=== PATIENT | female | born 1935 | race Caucasian/White ===

== ENCOUNTER 2018-07-18 09:09 | Inpatient (IN) | payer MEDICARE, MEDICAID ==
[~2018-07-18] VITALS: Ht 152.4 cm; Wt 59.4 kg
[2018-07-18] VITALS (10 sets, daily range): BP systolic 109–151; BP diastolic 36–75
[2018-07-18 09:45] LABS: EOSINOPHILS # (AUTO) 0.1 K/uL (0.0-0.7); LYMPHOCYTES # (AUTO) 1.1 K/uL (20.0-40.0); MONOCYTES # (AUTO) 0.6 K/uL (2.0-10.0)
[2018-07-18 09:56] LABS: CARBON DIOXIDE 25 mmol/L (21-32); CHLORIDE 102 mmol/L (98-107); CREATININE 0.8 mg/dL (0.6-1.3); GLUCOSE 176 mg/dL (74-106); POTASSIUM 4.4 mmol/L (3.5-5.1); UREA NITROGEN, BLOOD 13 mg/dL (7-18)
[2018-07-18 10:02] LABS: ALANINE AMINOTRANSFERASE 15 U/L (14-59); ALKALINE PHOSPHATASE 123 U/L (50-136); ASPARTATE AMINOTRANSFERASE 8 U/L (15-37); BILIRUBIN,DIRECT 0.1 mg/dL (0.0-0.2); BILIRUBIN,TOTAL 0.3 mg/dL (0.2-1.0); LIPASE 181 U/L (73-393); TOTAL PROTEIN, SERUM 7.5 g/dL (6.4-8.2)
[2018-07-18 10:07] LABS: BASOPHILS % (AUTO) 0.7 % (0.0-2.0); EOSINOPHILS % (AUTO) 1.4 % (0.0-7.0); LYMPHOCYTES % (AUTO) 18.3 % (20.5-51.5); MEAN CORPUSCULAR HEMOGLOBIN 18.7 uug (24.7-32.8); MEAN CORPUSCULAR HGB CONC 30 g/dL (32.3-35.6); MEAN CORPUSCULAR VOLUME 62.8 fL (75.5-95.3); MONOCYTES % (AUTO) 9.7 % (0.0-11.0); NEUTROPHILS # (AUTO) 4.3 K/uL (1.8-8.9); NEUTROPHILS % (AUTO) 69.9 % (38.5-71.5); PLATELET COUNT (AUTO) 352 K/uL (179-408); RED BLOOD CELL COUNT(AUTO) 3.63 MIL/uL (3.63-4.92); WHITE BLOOD COUNT (AUTO) 6.2 K/uL (3.8-11.8)
[2018-07-18] MEDS ORDERED: METF-442 PO (10:09)
[2018-07-18] MEDS ORDERED: ACET-2154 PO (10:09)
[2018-07-18] MEDS ORDERED: FERR325T28 PO (10:09)
[2018-07-18] MEDS ORDERED: DOCU100C36 PO (10:09)
[2018-07-18] MEDS ORDERED: GLIP5TAB13 PO (10:09)
[2018-07-18] MEDS ORDERED: LISI-607 PO (10:09)
[2018-07-18] MEDS ORDERED: MAGN400O6 PO (10:09)
[2018-07-18] MEDS ORDERED: ATOR10TA PO (10:09)
[2018-07-18] MEDS ORDERED: MEMA10TA PO (10:09)
[2018-07-18 10:10] LABS: HEMOGLOBIN 6.8 g/dL (10.9-14.3)
[2018-07-18 10:11] LABS: HEMATOCRIT 22.8 % (31.2-41.9)
[2018-07-18 10:15] LABS: IRON, SERUM 129 ug/dL (50-175)
[2018-07-18] MEDS ORDERED: PRIM50TA PO (10:32)
[2018-07-18] MEDS ORDERED: ASCO500C18 PO (10:32)
[2018-07-18] MEDS ORDERED: AMLO5TAB4 PO (10:32)
[2018-07-18] MEDS ORDERED: SENN-167 PO (10:32)
[2018-07-18] MEDS ORDERED: LEVO25TA2 PO (10:32)
[2018-07-18] MEDS ORDERED: FAMO20TA41 PO (10:32)
[2018-07-18] MEDS ORDERED: INSU100V28 SQ (10:32)
[2018-07-18 10:37] LABS: BASOPHILS % (MANUAL) 1 % (0-2); EOSINOPHILS % (MANUAL) 3 % (0-8); LYMPHOCYTES % (MANUAL) 15 % (20-40); METAMYELOCYTES % 1 % (0-1); MONOCYTES % (MANUAL) 6 % (2-10); MYELOCYTES % 2 % (0-0); NEUTROPHILS % (MANUAL) 72 % (42-75)
--- NOTE | 2018-07-18 11:37 | NUR ---
pt transfered to floor in stable condition
--- NOTE | 2018-07-18 11:40 | NUR ---
Admitted from ER per glory accompanied by nurse for anemia. Patient alert x2. Able to make needs known, with periods of confusion. Not in any form of distress. Denies any pain. Oriented patient to unit and equipment. Routine admission care done.
--- NOTE | 2018-07-18 14:21 | NUR ---
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 PT PRESENTS WITH SACRAL SCAR, PRESENT ON ADMISSION. 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 ALL SKIN PROTECTION RECOMMENDATIONS DISCUSSED WITH NURSING STAFF. WILL SEE PRN. GUILLEN IN AGREEMENT WITH PLAN OF CARE. Addendum: 07/18/18 at 1423 by MAYRA GREEN RN Amended: Links added. Addendum: 07/18/18 at 1423 by MAYRA GREEN RN CURRENT VICTOR M SCORE IS 14.
--- NOTE | 2018-07-18 15:00 | NUR ---
Paged Dr selma Del Rio for orders, awaiting for call back.
[2018-07-18] MEDS ORDERED: SENNOSIDES 1 TABLET PO PRN (17:00)
[2018-07-18] MEDS ORDERED: Medication Not On Formulary EA (Metformin Hcl 1,000 MG) PO SCH (17:00)
[2018-07-18] MEDS ORDERED: HYDROCODONE/APAP 5-325MG TABLET PO PRN (17:15)
[2018-07-18] MEDS ORDERED: ZOLPIDEM 5 MG TABLET PO PRN (17:15)
[2018-07-18] MEDS ORDERED: ONDANSETRON 4 MG/2 ML VIAL IV PRN (17:15)
[2018-07-18] MEDS ORDERED: ACETAMINOPHEN 325 MG TABLET PO PRN (17:15)
[2018-07-18] MEDS ORDERED: Z GUARD REMEDY PASTE 57 GM TUBE TOP PRN (17:15)
[2018-07-18] MEDS ORDERED: MAGNESIUM HYDROXIDE 30 ML LIQUID UDC PO PRN (17:15)
[2018-07-18] MEDS: DOCUSATE SODIUM 100 MG CAPSULE PO SCH (17:49)
[2018-07-18] MEDS: METFORMIN HCL 500 MG TABLET PO SCH (17:49)
[2018-07-18] MEDS ORDERED: ACETAMINOPHEN 325 MG TABLET PO SCH (18:00)
--- NOTE | 2018-07-18 19:00 | NUR ---
Consent for blood transfusion signed by daughter. Blood transfusion started, not in any form of distress with O positive LRBC unit # [id number]. Vital signs WNL. No active bleeding noted.
[2018-07-18] MEDS: MEMANTINE HCL 10 MG TABLET PO SCH (20:24)
[2018-07-18] MEDS: ATORVASTATIN 10 MG TABLET PO SCH (20:24)
[2018-07-18] MEDS: PRIMIDONE 50 MG TABLET PO SCH (20:24)
[2018-07-18] MEDS ORDERED: MAGNESIUM HYDROXIDE 30 ML LIQUID UDC PO SCH (21:00)
[2018-07-19 03:16] VITALS: BP 126/39
--- NOTE | 2018-07-19 05:26 | NUR ---
nsg: pt received 1 unit prbc with H/H of 6.8/22.8. all needs attended. cont to monitor.
[2018-07-19] MEDS: LEVOTHYROXINE SODIUM 25 MCG TABLET PO SCH (06:12)
--- NOTE | 2018-07-19 06:59 | NUR ---
nsg: pt pulled out heplock. attempted to insert twice, unsuccessful. will endorse to am nurse for help.
[2018-07-19 07:10] LABS: BASOPHILS % (AUTO) 0.5 % (0.0-2.0); EOSINOPHILS # (AUTO) 0.1 K/uL (0.0-0.7); EOSINOPHILS % (AUTO) 0.7 % (0.0-7.0); HEMATOCRIT 25.8 % (31.2-41.9); HEMOGLOBIN 8.1 g/dL (10.9-14.3); LYMPHOCYTES # (AUTO) 1.3 K/uL (20.0-40.0); MEAN CORPUSCULAR HEMOGLOBIN 20.9 uug (24.7-32.8); MEAN CORPUSCULAR HGB CONC 31 g/dL (32.3-35.6); MEAN CORPUSCULAR VOLUME 66.8 fL (75.5-95.3); MONOCYTES # (AUTO) 0.8 K/uL (2.0-10.0); MONOCYTES % (AUTO) 7.7 % (0.0-11.0); NEUTROPHILS # (AUTO) 7.7 K/uL (1.8-8.9); NEUTROPHILS % (AUTO) 78.1 % (38.5-71.5); PLATELET COUNT (AUTO) 361 K/uL (179-408); RED BLOOD CELL COUNT(AUTO) 3.87 MIL/uL (3.63-4.92); WHITE BLOOD COUNT (AUTO) 9.8 K/uL (3.8-11.8)
[2018-07-19 07:27] LABS: ALANINE AMINOTRANSFERASE 15 U/L (14-59); ALKALINE PHOSPHATASE 122 U/L (50-136); ASPARTATE AMINOTRANSFERASE 12 U/L (15-37); BILIRUBIN,TOTAL 0.8 mg/dL (0.2-1.0); CARBON DIOXIDE 28 mmol/L (21-32); CHLORIDE 103 mmol/L (98-107); CHOLESTEROL 113 mg/dL (<200); CREATININE 0.8 mg/dL (0.6-1.3); GLUCOSE 141 mg/dL (74-106); HDL CHOLESTEROL 38 mg/dL (40-60); MAGNESIUM 1.9 mg/dL (1.8-2.4); PHOSPHOROUS 2.5 mg/dL (2.5-4.9); POTASSIUM 4.3 mmol/L (3.5-5.1); TOTAL PROTEIN, SERUM 7.3 g/dL (6.4-8.2); TRIGLYCERIDES 136 MG/DL (30-150); UREA NITROGEN, BLOOD 11 mg/dL (7-18)
--- NOTE | 2018-07-19 08:20 | NUR ---
AWAKE ALERT BUT CONFUSED X3 NO SS OF DISTRESS. WILL FOLLOW-UP LABS ORDERED SR ON MONITOR
[2018-07-19] MEDS: DOCUSATE SODIUM 100 MG CAPSULE PO SCH ×2 (08:31→17:03)
[2018-07-19] MEDS: ASCORBIC ACID 500 MG TABLET PO SCH (08:31)
[2018-07-19] MEDS: FAMOTIDINE 20 MG TABLET PO SCH (08:31)
[2018-07-19] MEDS: FERROUS SULFATE 325 MG TABEC PO SCH (08:32)
[2018-07-19] MEDS: MEMANTINE HCL 10 MG TABLET PO SCH ×2 (08:32→20:17)
[2018-07-19] MEDS: METFORMIN HCL 500 MG TABLET PO SCH ×2 (08:32→17:03)
[2018-07-19] MEDS: AMLODIPINE 5 MG TABLET PO SCH (08:35)
[2018-07-19] MEDS: LISINOPRIL 5 MG TABLET PO SCH (08:35)
[2018-07-19] MEDS: glipiZIDE 5 MG TABLET PO SCH ×2 (08:38→17:04)
[2018-07-19] MEDS ORDERED: Medication Not On Formulary EA (Ascorbic Acid (Vitamin C) 500 MG) PO SCH (09:00)
[2018-07-19 09:20] LABS: LYMPHOCYTES % (MANUAL) 13 % (20-40); MONOCYTES % (MANUAL) 7 % (2-10)
[2018-07-19 09:22] LABS: NEUTROPHILS % (MANUAL) 80 % (42-75)
[2018-07-19 11:32] VITALS: BP 124/59
--- NOTE | 2018-07-19 12:00 | NUR ---
SEEN BY MD SEE NOTES CONTINUE WITH TELE MONITORING
[2018-07-19] MEDS: CYANOCOBALAMIN 1000 MCG/ML VIAL IM SCH (12:04)
[2018-07-19 15:58] VITALS: BP 119/45
--- NOTE | 2018-07-19 16:09 | NUR ---
NO ACUTE CHANGE B12 GIVEN FOR LOW VIT B12.
[2018-07-19] MEDS: IV NS 1000 ML 1,000 ML IV PRN (17:25)
--- NOTE | 2018-07-19 19:47 | NUR ---
PATIENT IS AWAKE, AAOX2 WITH CONFUSION. DENIES PAIN OR ANY DISCOMFORT ON ASSESSMENT. SAFETY MEASURES IN PLACE WILL CONTINUE TOO MONITOR PATIENT
[2018-07-19 20:00] VITALS: BP 122/45
[2018-07-19] MEDS: PRIMIDONE 50 MG TABLET PO SCH (20:17)
[2018-07-19] MEDS: ATORVASTATIN 10 MG TABLET PO SCH (20:17)
[2018-07-20] VITALS (9 sets, daily range): BP systolic 106–133; BP diastolic 44–66
--- NOTE | 2018-07-20 06:17 | NUR ---
PATIENT SLEPT WELL ON THIS SHIFT, NO SIGNS OF BLEEDING . NO S/S OF PAIN OR ACUTE DISTRESS ON THIS SHIFT, SAFETY MEASURES MAINTAINED AT ALL TIMES.
[2018-07-20 06:20] LABS: BASOPHILS % (AUTO) 0.4 % (0.0-2.0); LYMPHOCYTES # (AUTO) 1.1 K/uL (20.0-40.0); WHITE BLOOD COUNT (AUTO) 6.3 K/uL (3.8-11.8)
[2018-07-20] MEDS: glipiZIDE 5 MG TABLET PO SCH ×2 (06:20→17:04)
[2018-07-20] MEDS: LEVOTHYROXINE SODIUM 25 MCG TABLET PO SCH (06:20)
[2018-07-20 06:22] LABS: EOSINOPHILS # (AUTO) 0.1 K/uL (0.0-0.7); EOSINOPHILS % (AUTO) 0.9 % (0.0-7.0); HEMATOCRIT 22.2 % (31.2-41.9); LYMPHOCYTES % (AUTO) 18.2 % (20.5-51.5); MEAN CORPUSCULAR HEMOGLOBIN 21.3 uug (24.7-32.8); MEAN CORPUSCULAR HGB CONC 32 g/dL (32.3-35.6); MEAN CORPUSCULAR VOLUME 66.1 fL (75.5-95.3); MONOCYTES # (AUTO) 0.7 K/uL (2.0-10.0); MONOCYTES % (AUTO) 10.6 % (0.0-11.0); NEUTROPHILS # (AUTO) 4.4 K/uL (1.8-8.9); NEUTROPHILS % (AUTO) 69.9 % (38.5-71.5); PLATELET COUNT (AUTO) 340 K/uL (179-408); RED BLOOD CELL COUNT(AUTO) 3.36 MIL/uL (3.63-4.92)
[2018-07-20 06:38] LABS: HEMOGLOBIN 7.1 g/dL (10.9-14.3)
[2018-07-20 06:45] LABS: CARBON DIOXIDE 23 mmol/L (21-32); CHLORIDE 106 mmol/L (98-107); CREATININE 0.7 mg/dL (0.6-1.3); GLUCOSE 104 mg/dL (74-106); UREA NITROGEN, BLOOD 10 mg/dL (7-18)
--- NOTE | 2018-07-20 07:30 | NUR ---
AWAKE ALERT BUT CONFUSED X3 NO SS OF PAIN OR DISTRESS. SR ON MONITOR.
[2018-07-20] MEDS: FERROUS SULFATE 325 MG TABEC PO SCH (08:57)
[2018-07-20] MEDS: MEMANTINE HCL 10 MG TABLET PO SCH ×2 (08:57→20:02)
[2018-07-20] MEDS: DOCUSATE SODIUM 100 MG CAPSULE PO SCH ×2 (08:57→17:04)
[2018-07-20] MEDS: METFORMIN HCL 500 MG TABLET PO SCH ×2 (08:57→17:04)
[2018-07-20] MEDS: ASCORBIC ACID 500 MG TABLET PO SCH (08:57)
[2018-07-20] MEDS: CYANOCOBALAMIN 1000 MCG/ML VIAL IM SCH (08:58)
[2018-07-20] MEDS: FAMOTIDINE 20 MG TABLET PO SCH (08:58)
[2018-07-20] MEDS: AMLODIPINE 5 MG TABLET PO SCH (09:02)
[2018-07-20] MEDS: LISINOPRIL 5 MG TABLET PO SCH (09:03)
[2018-07-20] MEDS: IV NS 1000 ML 1,000 ML IV PRN (09:04)
--- NOTE | 2018-07-20 10:00 | NUR ---
SEEN BY KARINE FELIZ SEE NOTES
--- NOTE | 2018-07-20 12:00 | NUR ---
SEEN BY JODIE MERRILL NOTED LOW HGB WITH ORDERS. FOR POSSIBLE EGD AND COLONOSCOPY AWAITING SCHEDULE
[2018-07-20 12:28] LABS: LACTATE DEHYDROGENASE 217 U/L (81-234)
[2018-07-20 13:01] LABS: IRON, SERUM 11 ug/dL (50-175)
[2018-07-20 13:16] LABS: FERRITIN 14 ng/mL (8-252)
--- NOTE | 2018-07-20 17:25 | NUR ---
WILL TRANSFUSE 1 UNIT PRBC AWAITNG CROSSMATCH
--- NOTE | 2018-07-20 19:32 | NUR ---
PATIENT IS AWAKE AAOX2 WITH CONFUSION. DENIES PAIN OR ACUTE DISTRESS ON ASSESSMENT. SAFETY MEASURES IN PLACE, WILL CONTINUE TO MONITOR PATIENT
[2018-07-20] MEDS: PRIMIDONE 50 MG TABLET PO SCH (20:02)
[2018-07-20] MEDS: ATORVASTATIN 10 MG TABLET PO SCH (20:02)
--- NOTE | 2018-07-20 21:36 | NUR ---
BLOOD TRANSFUSION STARTED PER MD ORDERS, PATIENT WITH NO DISTRESS, NO S/S OF TRANSFUSION REACTION. V/S WNL WILL CONTINUE TO MONITOR PATIENT
--- NOTE | 2018-07-20 22:30 | NUR ---
PATIENT TOLERATING TRANSFUSION WELL, NO S/S OF DISTRESS. WILL CONTINUE TO MONITOR PATIENT
[2018-07-21] VITALS: BP 104/57
[2018-07-21 00:01] VITALS: BP 108/57
--- NOTE | 2018-07-21 00:02 | NUR ---
END BLOOD TRANSFUSION, PATIENT TOLERATED TRANSFUSION WELL. V/S WNL, NO REACTION OR DISTRESS DURING TRANSFUSION.
[2018-07-21 03:16] LABS: *OCCULT BLOOD STOOL POSITIVE (NEGATIVE)
[2018-07-21 05:00] VITALS: BP 116/57
--- NOTE | 2018-07-21 06:21 | NUR ---
PATIENT SLEPT WELL ON THIS SHIFT. NO SIGNS OF BLEEDING NOTED. PATIENT CONFUSED AND COMBATIVE WITH CARE REFUSED ALL HER A.M MEDS, NO FURTHER CHANGES AT THIS TIME
[2018-07-21] MEDS: LEVOTHYROXINE SODIUM 25 MCG TABLET PO SCH (06:29)
[2018-07-21 07:09] LABS: BASOPHILS % (AUTO) 0.6 % (0.0-2.0); EOSINOPHILS # (AUTO) 0.1 K/uL (0.0-0.7); EOSINOPHILS % (AUTO) 1.2 % (0.0-7.0); HEMATOCRIT 28.9 % (31.2-41.9); HEMOGLOBIN 9.2 g/dL (10.9-14.3); LYMPHOCYTES # (AUTO) 1.2 K/uL (20.0-40.0); LYMPHOCYTES % (AUTO) 17.2 % (20.5-51.5); MEAN CORPUSCULAR HEMOGLOBIN 22.3 uug (24.7-32.8); MEAN CORPUSCULAR HGB CONC 32 g/dL (32.3-35.6); MEAN CORPUSCULAR VOLUME 70.5 fL (75.5-95.3); MONOCYTES # (AUTO) 0.6 K/uL (2.0-10.0); MONOCYTES % (AUTO) 8.9 % (0.0-11.0); NEUTROPHILS # (AUTO) 5.1 K/uL (1.8-8.9); NEUTROPHILS % (AUTO) 72.1 % (38.5-71.5); PLATELET COUNT (AUTO) 354 K/uL (179-408)
[2018-07-21 07:27] LABS: CARBON DIOXIDE 26 mmol/L (21-32); CHLORIDE 106 mmol/L (98-107); CREATININE 0.7 mg/dL (0.6-1.3); GLUCOSE 125 mg/dL (74-106); MAGNESIUM 1.7 mg/dL (1.8-2.4); POTASSIUM 4.1 mmol/L (3.5-5.1); UREA NITROGEN, BLOOD 6 mg/dL (7-18)
[2018-07-21] MEDS: glipiZIDE 5 MG TABLET PO SCH ×2 (07:30→17:31)
--- NOTE | 2018-07-21 07:45 | NUR ---
Received patient asleep in bed, not in any form of distress. Noted with IV access to saline lock on left fore arm, intact. Noted for possible EGD and colonoscopy,noted consent on chart. Awaiting final orders from Dr. Disla of GI. Bed in low position, side rails up, call light within reach. Ensured safety and comfort. Will continue to monitor.
[2018-07-21] MEDS: METFORMIN HCL 500 MG TABLET PO SCH ×2 (08:00→17:31)
[2018-07-21] MEDS: LISINOPRIL 5 MG TABLET PO SCH (08:29)
[2018-07-21] MEDS: MEMANTINE HCL 10 MG TABLET PO SCH ×2 (08:29→20:50)
[2018-07-21] MEDS: ASCORBIC ACID 500 MG TABLET PO SCH (08:29)
[2018-07-21] MEDS: CYANOCOBALAMIN 1000 MCG/ML VIAL IM SCH (08:30)
[2018-07-21] MEDS: DOCUSATE SODIUM 100 MG CAPSULE PO SCH ×2 (08:30→17:31)
[2018-07-21] MEDS: FAMOTIDINE 20 MG TABLET PO SCH (08:30)
[2018-07-21] MEDS: AMLODIPINE 5 MG TABLET PO SCH (08:30)
[2018-07-21] MEDS: FERROUS SULFATE 325 MG TABEC PO SCH (08:34)
--- NOTE | 2018-07-21 09:00 | NUR ---
Noted patient seen by Dr. Disla who ordered to proceed with EGD with colonoscopy for tomorrow morning. Colon prep ordered. Patient's daughter, Aurelia also updated of the mentioned procedure.
[2018-07-21 11:50] VITALS: BP 128/46
[2018-07-21] MEDS ORDERED: NEUTRA PHOS PACKET PO ONE (12:15)
[2018-07-21] MEDS: MAGNESIUM SULFATE/D5W 100 ML IV SCH ×2 (12:52→13:54)
[2018-07-21 15:50] VITALS: BP 118/46
[2018-07-21] MEDS: IV NS 1000 ML 1,000 ML IV PRN (19:00)
--- NOTE | 2018-07-21 19:30 | NUR ---
Patient awake in bed, not in any form of distress. Noted with IV access to normal saline at 75cc/hr. Noted for EGD and colonoscopy tomorrow,noted consent on chart. Maintained on clear liquids and to be npo post midnight. Patient informed that bowel prep will be started tonight. Bed in low position, side rails up, call light within reach. Ensured safety and comfort.
[2018-07-21 20:00] VITALS: BP 136/40
[2018-07-21] MEDS ORDERED: GOLYTELY 4000 ML BOTTLE PO ONE (20:00)
--- NOTE | 2018-07-21 20:00 | NUR ---
RECEIVED PATIENT AWAKE IN BED. A/O X2. FORGETFUL AT TIMES BUT FOLLOWS DIRECTIONS WELL. PATIENT EDUCATED AND AWARE THAT SHE NEEDS TO START GOLYTELY PREP FOR COLONOSCOPY IN AM. PATIENT STARTED ON GOLYTELY ORDERED PER GI MD. VS WNL. IVF INFUSING WELL TO LEFT FA #20 GAUGE. PATIENT DENIES PAIN OR DISCOMFORT. NO RESP. DISTRESS NOTED. CALL LIGHT IN REACH. BED ALARM ON. ALL NEEDS ATTENDED.
[2018-07-21] MEDS: PRIMIDONE 50 MG TABLET PO SCH (20:50)
[2018-07-21] MEDS: ATORVASTATIN 10 MG TABLET PO SCH (20:50)
--- NOTE | 2018-07-21 23:00 | NUR ---
PATIENT AWAKE IN BED. REFUSING TO FINISH GOLYTELY PATIENT HAS INTAKE ABOUT 1500cc. NOTIFIED RETAIL ASSOCIATE THAT PATIENT IS REFUSING AND STATING SHE IS UNABLE TO FINISH PREP. PATIENT HAS HAD ONE LOOSE BM, NOTED DARK BLACK COLOR. WILL CONTINUE TO MONITOR.
--- NOTE | 2018-07-21 23:20 | NUR ---
CALLED OUT TO DR. MAR TO INFORM HIM THAT PATIENT IS UNABLE TO FINISH AND REFUSING GOLYTELY PREP. MD AWARE. NO NEW ORDERS GIVEN AT THIS TIME. ENVIRONMENTAL PLANNER NOTIFIED.
[2018-07-22] VITALS: BP 110/45
--- NOTE | 2018-07-22 00:30 | NUR ---
PATIENT NPO ORDERED.
[2018-07-22 04:00] VITALS: BP 114/45
--- NOTE | 2018-07-22 05:54 | NUR ---
PATIENT AWAKE IN BED. SLEPT WELL THROUGHOUT THE NIGHT. VSS. ON TELE SR. IVF INFUSING WELL. DENIES PAIN OR DISCOMFORT. CALL LIGHT IN REACH. BED ALARM ON. ALL NEEDS ATTENDED.
[2018-07-22] MEDS: IV NS 1000 ML 1,000 ML IV PRN (05:57)
[2018-07-22] MEDS: LEVOTHYROXINE SODIUM 25 MCG TABLET PO SCH (06:02)
[2018-07-22 06:34] LABS: BASOPHILS % (AUTO) 0.4 % (0.0-2.0); EOSINOPHILS # (AUTO) 0.1 K/uL (0.0-0.7); EOSINOPHILS % (AUTO) 0.9 % (0.0-7.0); HEMATOCRIT 27.9 % (31.2-41.9); HEMOGLOBIN 8.9 g/dL (10.9-14.3); LYMPHOCYTES # (AUTO) 1.1 K/uL (20.0-40.0); LYMPHOCYTES % (AUTO) 16.7 % (20.5-51.5); MEAN CORPUSCULAR HEMOGLOBIN 21.9 uug (24.7-32.8); MEAN CORPUSCULAR HGB CONC 32 g/dL (32.3-35.6); MEAN CORPUSCULAR VOLUME 68.8 fL (75.5-95.3); MONOCYTES # (AUTO) 0.6 K/uL (2.0-10.0); MONOCYTES % (AUTO) 8.9 % (0.0-11.0); NEUTROPHILS # (AUTO) 4.9 K/uL (1.8-8.9); NEUTROPHILS % (AUTO) 73.1 % (38.5-71.5); PLATELET COUNT (AUTO) 347 K/uL (179-408); RED BLOOD CELL COUNT(AUTO) 4.06 MIL/uL (3.63-4.92); WHITE BLOOD COUNT (AUTO) 6.7 K/uL (3.8-11.8)
[2018-07-22 06:46] LABS: CARBON DIOXIDE 22 mmol/L (21-32); CHLORIDE 107 mmol/L (98-107); CREATININE 0.6 mg/dL (0.6-1.3); GLUCOSE 102 mg/dL (74-106); PHOSPHOROUS 2.2 mg/dL (2.5-4.9); POTASSIUM 3.8 mmol/L (3.5-5.1); UREA NITROGEN, BLOOD 5 mg/dL (7-18)
[2018-07-22] MEDS: glipiZIDE 5 MG TABLET PO SCH ×2 (07:30→16:14)
[2018-07-22] MEDS: METFORMIN HCL 500 MG TABLET PO SCH ×2 (08:00→16:53)
--- NOTE | 2018-07-22 08:00 | NUR ---
SPOKE WITH DR ROLAND SAID HE IS NOT SITE HEAD AND ADVICE TO CALL GI SALVAGE ENGINEERING TECHNICIAN TESFAYE TO SCHEDULE EGD/COLONOSCOPY
[2018-07-22] MEDS: FERROUS SULFATE 325 MG TABEC PO SCH (09:00)
[2018-07-22] MEDS: MEMANTINE HCL 10 MG TABLET PO SCH ×2 (09:00→21:02)
[2018-07-22] MEDS: DOCUSATE SODIUM 100 MG CAPSULE PO SCH ×2 (09:00→16:14)
[2018-07-22] MEDS: ASCORBIC ACID 500 MG TABLET PO SCH (09:00)
[2018-07-22] MEDS: FAMOTIDINE 20 MG TABLET PO SCH (09:00)
--- NOTE | 2018-07-22 10:30 | NUR ---
TESFAYE MILTON STEEL PLACER NOTIFIED AND SAID TO KEPT PT ON NPO AND WILL SCHEDULE PATIENT FOR EGD SINCE PATIENT CANNOT TOLERATE GOLYTELY
[2018-07-22] MEDS ORDERED: PROPOFOL 200 MG/20 ML BOTTLE IV ONE (10:50)
[2018-07-22] MEDS ORDERED: IV NORMAL SALINE 1000 ML BAG IV ONE (10:50)
[2018-07-22] MEDS ORDERED: LIDOCAINE HCL 2% 20 ML VIAL MC ONE (10:50)
[2018-07-22 11:16] VITALS: BP 127/49
[2018-07-22] MEDS: LISINOPRIL 5 MG TABLET PO SCH (11:34)
[2018-07-22] MEDS: CYANOCOBALAMIN 1000 MCG/ML VIAL IM SCH (11:34)
[2018-07-22] MEDS: AMLODIPINE 5 MG TABLET PO SCH (11:35)
--- NOTE | 2018-07-22 12:00 | NUR ---
SEEN BY HOSPITALIST NOTED LABS WITH ORDERS. NO ACUTE CHANGE
--- NOTE | 2018-07-22 15:16 | NUR ---
AWAITING EGD PROCEDURE BY DR RYDER KEPT NPO
[2018-07-22 15:21] VITALS: BP 140/50
--- NOTE | 2018-07-22 16:13 | NUR ---
TO GI LAB FOR EGD AND COLONOSCOPY VIA BED ACCOMPANIED BY GI LAB STAFF
--- NOTE | 2018-07-22 18:30 | NUR ---
BACK FROM [facility]ERY AWAKE ALERT NO SOB OR SS OF PAIN. STARTED NAN SR ON MONITOR
[2018-07-22 19:49] VITALS: BP 125/44
--- NOTE | 2018-07-22 20:00 | NUR ---
RECEIVED PATIENT AWAKE IN BED. A/O X2. DENIES PAIN OR DISCOMFORT. NO RESP. DISTRESS NOTED. IVF INFUSING WELL TO LEFT FA. VS WNL. BED ALARM ON. CALL LIGHT IN REACH. ALL NEEDS ATTENDED. WILL CONTINUE TO MONITOR AND ASSESS. Addendum: 07/22/18 at 2032 by EMERALD LIMON LVN ON TELE SR.
[2018-07-22] MEDS ORDERED: NEUTRA PHOS PACKET PO ONE (21:00)
[2018-07-22] MEDS: ATORVASTATIN 10 MG TABLET PO SCH (21:02)
[2018-07-22] MEDS: PRIMIDONE 50 MG TABLET PO SCH (21:02)
[2018-07-23 00:31] VITALS: BP 127/55
[2018-07-23] MEDS: IV NS 1000 ML 1,000 ML IV PRN (03:08)
[2018-07-23 05:02] VITALS: BP 138/42
[2018-07-23] MEDS: LEVOTHYROXINE SODIUM 25 MCG TABLET PO SCH (06:10)
[2018-07-23 06:24] LABS: BASOPHILS % (AUTO) 0.5 % (0.0-2.0); EOSINOPHILS % (AUTO) 0.9 % (0.0-7.0); HEMATOCRIT 27.9 % (31.2-41.9); HEMOGLOBIN 8.9 g/dL (10.9-14.3); LYMPHOCYTES % (AUTO) 18.8 % (20.5-51.5); MEAN CORPUSCULAR HEMOGLOBIN 22.2 uug (24.7-32.8); MEAN CORPUSCULAR HGB CONC 32 g/dL (32.3-35.6); MEAN CORPUSCULAR VOLUME 70.1 fL (75.5-95.3); MONOCYTES # (AUTO) 0.5 K/uL (2.0-10.0); MONOCYTES % (AUTO) 9.4 % (0.0-11.0); NEUTROPHILS # (AUTO) 3.7 K/uL (1.8-8.9); NEUTROPHILS % (AUTO) 70.4 % (38.5-71.5); PLATELET COUNT (AUTO) 330 K/uL (179-408); RED BLOOD CELL COUNT(AUTO) 3.98 MIL/uL (3.63-4.92); WHITE BLOOD COUNT (AUTO) 5.3 K/uL (3.8-11.8)
--- NOTE | 2018-07-23 06:33 | NUR ---
PATIENT ASLEEP IN BED. SLEPT WELL VSS. ON TELE SR. BED ALARM ON, CALL LIGHT IN REACH. WILL CONTINUE TO MONITOR.
[2018-07-23 06:47] LABS: CARBON DIOXIDE 25 mmol/L (21-32); CHLORIDE 109 mmol/L (98-107); CREATININE 0.6 mg/dL (0.6-1.3); GLUCOSE 102 mg/dL (74-106); MAGNESIUM 1.8 mg/dL (1.8-2.4); PHOSPHOROUS 2.8 mg/dL (2.5-4.9); POTASSIUM 3.9 mmol/L (3.5-5.1); UREA NITROGEN, BLOOD 6 mg/dL (7-18)
--- NOTE | 2018-07-23 08:00 | NUR ---
AWAKE ALERT COOPERATE WELL NO ACUTE DISTRESS OR PAIN ,CONTINUE O2 AT 2L O2 SAT WNL RESTING WELL WITH CALL PAYNE IN REACH
[2018-07-23] MEDS: METFORMIN HCL 500 MG TABLET PO SCH ×2 (08:33→16:31)
[2018-07-23] MEDS: glipiZIDE 5 MG TABLET PO SCH (08:34)
[2018-07-23] MEDS: FERROUS SULFATE 325 MG TABEC PO SCH (08:34)
[2018-07-23] MEDS: LISINOPRIL 5 MG TABLET PO SCH (08:34)
[2018-07-23] MEDS: FAMOTIDINE 20 MG TABLET PO SCH (08:35)
[2018-07-23] MEDS: MEMANTINE HCL 10 MG TABLET PO SCH (08:35)
[2018-07-23] MEDS: CYANOCOBALAMIN 1000 MCG/ML VIAL IM SCH (08:35)
[2018-07-23] MEDS: DOCUSATE SODIUM 100 MG CAPSULE PO SCH ×2 (08:36→16:21)
[2018-07-23] MEDS: AMLODIPINE 5 MG TABLET PO SCH (08:36)
[2018-07-23] MEDS: ASCORBIC ACID 500 MG TABLET PO SCH (08:36)
[2018-07-23 11:24] VITALS: BP 128/55
[2018-07-23 11:49] LABS: BILIRUBIN,DIRECT 0.2 mg/dL (0.0-0.2); BILIRUBIN,TOTAL 0.6 mg/dL (0.2-1.0); TOTAL PROTEIN, SERUM 6.3 g/dL (6.4-8.2)
--- NOTE | 2018-07-23 13:37 | NUR ---
DR HERNANDEZ SEE PATIENT AND ORDER OK TO D./C BACK TO SNF [facility] WITH ORDER
[2018-07-23] MEDS ORDERED: SOD FERRIC GLUC COMPLX/SUCROSE 125 MG in IV NORMAL SALINE 100 ML IV SCH (14:00)
--- NOTE | 2018-07-23 14:30 | NUR ---
D/C INSTRUCTION REGARDING D GO BACK TO SNF EXPLAINED TO PT/DAUGHTER AND REPORT GIVEN TO NURSE AT SNF VIA TEL PICTURE TAKEN ON SACRAL AREA RT HEEL SKIN REDNESS ALMOST CLEAR EDUCATION PK GAVE HL IV D/C PRIOR D/C TO SNF REFUSED VACCINE
[2018-07-23] MEDS ORDERED: ACET325T53 PO (14:32)
[2018-07-23] MEDS ORDERED: GLIP5TAB13 PO (14:32)
[2018-07-23] MEDS ORDERED: SUCR1ORA GT (14:32)
[2018-07-23] MEDS ORDERED: CYAN10006 IM (14:32)
[2018-07-23] MEDS ORDERED: PANT40TA2 PO (14:32)
--- NOTE | 2018-07-23 15:00 | NUR ---
PATIENT HAVING LOOSE BM X2 DR HERNANDEZ WAS INFORM AND REPORT TO NURSE TO HOLD [facility] TODAY
[2018-07-23 15:12] VITALS: BP 127/51
[2018-07-23] MEDS ORDERED: SUCRALFATE 1 G/10 ML LIQUID UDC GT SCH (16:30)
[2018-07-23] MEDS ORDERED: glipiZIDE 5 MG TABLET PO SCH (16:30)
--- NOTE | 2018-07-23 16:35 | NUR ---
EAT DINNER MOD AMT PO FLD CHEN TERRAZAS
[2018-07-23] MEDS ORDERED: PANTOPRAZOLE SODIUM 40 MG TABLET.DR PO SCH (17:00)
--- NOTE | 2018-07-23 17:05 | NUR ---
REPORT GIVEN TO AMBULANCE AND CONDITION STABLE D/C TO SNF NO BELONGING
== END 2018-07-23 17:10 | DRG 377 ==
LOC: ER 09:09 → TELE 11:31
PROVIDERS: ADMIT Internal Medicine; ATTEND Internal Medicine
PROC: 0DB98ZX Excision of Duodenum, Via Natural or Artificial Opening Endoscopic, Diagnostic (ICD-10-PCS; principal; 2018-07-18)
PROC: 30233N1 Transfusion of Nonautologous Red Blood Cells into Peripheral Vein, Percutaneous Approach (ICD-10-PCS; 2018-07-18)
DX: K26.4 Chronic or unspecified duodenal ulcer with hemorrhage (principal); G93.41 Metabolic encephalopathy; D68.59 Other primary thrombophilia; D50.0 Iron deficiency anemia secondary to blood loss (chronic); E11.9 Type 2 diabetes mellitus without complications; E03.9 Hypothyroidism, unspecified; I45.10 Unspecified right bundle-branch block; K44.9 Diaphragmatic hernia without obstruction or gangrene; E53.8 Deficiency of other specified B group vitamins; G40.909 Epilepsy, unspecified, not intractable, without status epilepticus; F03.90 Unspecified dementia, unspecified severity, without behavioral disturbance, psychotic disturbance, mood disturbance, and anxiety; E78.5 Hyperlipidemia, unspecified; Z74.09 Other reduced mobility; G25.0 Essential tremor; M81.0 Age-related osteoporosis without current pathological fracture; M19.90 Unspecified osteoarthritis, unspecified site; R97.0 Elevated carcinoembryonic antigen [CEA]; Z79.84 Long term (current) use of oral hypoglycemic drugs; I70.0 Atherosclerosis of aorta; K29.80 Duodenitis without bleeding; I10 Essential (primary) hypertension; E83.42 Hypomagnesemia; E83.39 Other disorders of phosphorus metabolism
CPT/HCPCS: 36415; 70030-TC; 71045; 82378; 83010; 83550; 83615; 83690; 83735; 84100; 84443; 85025; 85730; 86850; 86900; 86901; 86920; 88342; 93005; A4217; A4663; G0378; J2916; J3420; J3475; J3490; J7030; P9016-BL; P9021

== ENCOUNTER 2020-04-20 08:14 | Inpatient (IN) | payer MEDICARE, OTHER ==
[2020-04-20] VITALS (7 sets, daily range): BP systolic 103–117; BP diastolic 41–76
[~2020-04-20] VITALS: Ht 152.4 cm; Wt 56.2 kg
[~2020-04-20 08:14] MED LIST: ACET325T53 PO; AMLO5TAB4 PO; ASCO500C18 PO; CYAN10006 IM; DOCU100C36 PO; FERR325T28 PO; GLIP5TAB13 PO; LEVO25TA2 PO; LISI-607 PO; MAGN400O6 PO; MEMA10TA PO; METF-442 PO; PANT40TA2 PO; PRIM50TA PO; SENN-261 PO; SUCR1ORA GT
[2020-04-20] MEDS ORDERED: IV NORMAL SALINE 1000 ML BAG IV ONE (08:45)
[2020-04-20] MEDS ORDERED: GLUC1KIT SQ (08:47)
[2020-04-20] MEDS ORDERED: GLIM1TAB PO (08:47)
[2020-04-20] MEDS ORDERED: GLUCAGON PO (08:47)
[2020-04-20] MEDS ORDERED: RIVA10TA PO (08:47)
[2020-04-20] MEDS ORDERED: MIRT15TA PO (08:47)
--- NOTE | 2020-04-20 08:54 | NUR ---
PT IS IN ROOM #2B. DR CONSTANTINO EVALUATED THE PT.
[2020-04-20 10:01] LABS: BASOPHILS # (AUTO) 0.1 K/uL (0.0-8.0); BASOPHILS % (AUTO) 2.1 % (0.0-2.0); EOSINOPHILS % (AUTO) 0.2 % (0.0-7.0); LYMPHOCYTES # (AUTO) 0.7 K/uL (20.0-40.0); LYMPHOCYTES % (AUTO) 23.7 % (20.5-51.5); MEAN CORPUSCULAR HEMOGLOBIN 17.5 uug (24.7-32.8); MEAN CORPUSCULAR HGB CONC 27 g/dL (32.3-35.6); MEAN CORPUSCULAR VOLUME 65.5 fL (75.5-95.3); MONOCYTES # (AUTO) 0.3 K/uL (2.0-10.0); MONOCYTES % (AUTO) 11.9 % (0.0-11.0); NEUTROPHILS # (AUTO) 1.8 K/uL (1.8-8.9); NEUTROPHILS % (AUTO) 62.1 % (38.5-71.5); PLATELET COUNT (AUTO) 233 K/uL (179-408); WHITE BLOOD COUNT (AUTO) 2.9 K/uL (3.8-11.8)
[2020-04-20 10:12] LABS: RED BLOOD CELL COUNT(AUTO) 2.02 MIL/uL (3.63-4.92)
[2020-04-20 10:13] LABS: CREATININE 1.1 mg/dL (0.6-1.3); POTASSIUM 3.8 mmol/L (3.5-5.1)
[2020-04-20 10:16] LABS: HEMOGLOBIN 3.5 g/dL (10.9-14.3)
[2020-04-20 10:17] LABS: HEMATOCRIT 13.2 % (31.2-41.9)
[2020-04-20 10:29] LABS: BILIRUBIN,DIRECT 0.2 mg/dL (0.0-0.2); BILIRUBIN,TOTAL 0.7 mg/dL (0.2-1.0); TOTAL PROTEIN, SERUM 6.3 g/dL (6.4-8.2)
[2020-04-20] MEDS ORDERED: MORPHINE SULFATE 2 MG/1 ML DISP.SYRIN IV PRN (12:45)
[2020-04-20] MEDS ORDERED: ONDANSETRON 4 MG/2 ML VIAL IV PRN (12:45)
[2020-04-20] MEDS ORDERED: ACETAMINOPHEN 650 MG SUPP.RECT RC PRN (12:45)
--- NOTE | 2020-04-20 13:00 | NUR ---
Received report from Yovani JIM. Pt asleep but easily roused laying on bed. comfortable and on supine, with blood transfusing well to R wrist G18. with blow by o2 at 10lpm. 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 wearing surgical mask, connected to case monitor. Pt is still baseline nonverbal (but makes moans and tries to remove mask). Full code Ok to admit to TELE Rm [address] Hunt Dx: Failure to Trhive +Sever Anemia Pending report to receiving RN, due to pending COVID results.
--- NOTE | 2020-04-20 13:20 | NUR ---
Blood transfusion (1stbag) ended at this time. pt has no s/s advers/ anaphylactic reactions. Bp at 94/58mmHg HR at 89 T: 98.2 o2sat at 98 (with blow by at 10lpm) Pending report to receiving RN Pt comfortable, srx2 up, bed at lowest position
--- NOTE | 2020-04-20 13:21 | NUR ---
ERMD ordered (in writing ) to switch 0.45% NS as soon as 1st bag of Blood Transfusion is done. Rate at 125ml/hr. Infusing well as ordered to L wrist. no s/s of averse/anaphylactic reactions.
--- NOTE | 2020-04-20 14:14 | NUR ---
Aurelia ([facility]) [phone]
--- NOTE | 2020-04-20 14:15 | NUR ---
Report given to Yolanda JIM. Belongings inventory done by previous shift. Pt not in acute distress at this time.
[2020-04-20 14:22] LABS: IRON, SERUM 31 ug/dL (50-175)
--- NOTE | 2020-04-20 14:45 | NUR ---
Pt transported via gurney by [facility]. Pt. admitted to 317 , under care of Dr. Hunt Belongs List completed
--- NOTE | 2020-04-20 18:10 | NUR ---
Received patient via [place] with Diagnosis of Severe Anemia under Dr. Hunt. Patient opened her eyes to pain stimuli, received on Oxygen at 10L via facemask. Saturating 100%. No signs of distress noted. No SOB. No signs of pain or discomfort. patient is transfusing 2nd 1 PRBC, No ASE noted. kept clean and comfortable. All needs attended and met, Will continue to monitor.
[2020-04-20 18:14] LABS: BAND % (MANUAL) 2 % (0-10); LYMPHOCYTES % (MANUAL) 25 % (20-40); MONOCYTES % (MANUAL) 13 % (2-10); NEUTROPHILS % (MANUAL) 60 % (42-75)
--- NOTE | 2020-04-20 18:19 | NUR ---
Placed Patient on 3L via Face mask, saturating 97%. No SOB noted. Will continue to monitor.
[2020-04-20] MEDS ORDERED: DEXTROSE 50% 50 ML DISP.SYRIN IV PRN (19:15)
[2020-04-20 20:29] LABS: *BILIRUBIN,URIN NEGATIVE (NEGATIVE); *BLOOD, URINE 2+ (NEGATIVE); *CLARITY,URINE TURBID (CLEAR); *COLOR,URINE YELLOW (YELLOW); *KETONES,URINE NEGATIVE (NEGATIVE); LEUKOCYTE ESTERASE ,URINE 3+ (NEGATIVE); NITRITE, URINE POSITIVE (NEGATIVE); PH,URINE 7.5 (5.0-8.0); UGLUCOSE NEGATIVE (NEGATIVE)
[2020-04-20 20:41] LABS: BACTERIA,URINE 2+ /HPF (NONE SEEN); RBC,URINE 20-50 /HPF (0-3); SQUAMOUS EPITHELIAL CELL,UR FEW /HPF (NONE SEEN); WBC,URINE 50-80 /HPF (0-3)
--- NOTE | 2020-04-20 21:27 | NUR ---
Patient asleep but easily arousable. Patient vital signs stable, afebrile. Patient will received one unit of PRBC per order, v/s stable, no adverse reaction noted, cont to monitor.
--- NOTE | 2020-04-20 22:00 | NUR ---
Blood transfusion continue, tolerate well no s/s of sob, no s/s of chest pain, no coughing noted. Patient has no s/s of adverse reaction noted, cont to monitor.
[2020-04-21] VITALS (8 sets, daily range): BP systolic 104–131; BP diastolic 42–58
[2020-04-21] MEDS: BLOOD SUGAR DIAGNOSTIC 1 EACH STRIP VI SCH ×4 (00:30→17:09)
[2020-04-21] MEDS: INSULIN REGULAR, HUMAN 300 UNIT/3 ML VIAL SQ PRN ×2 (00:33→05:26)
[2020-04-21] MEDS: IV D5W 1000ML 1,000 ML IV PRN ×2 (00:40→15:23)
--- NOTE | 2020-04-21 00:42 | NUR ---
TRANSFUSED 1 UNIT PRBC, TOLERATE WELL, NO ADVERSE REACTION NOTED.
[2020-04-21 06:03] LABS: BASOPHILS % (AUTO) 0.2 % (0.0-2.0); EOSINOPHILS % (AUTO) 0.1 % (0.0-7.0); HEMATOCRIT 29.3 % (31.2-41.9); HEMOGLOBIN 9.5 g/dL (10.9-14.3); LYMPHOCYTES # (AUTO) 0.6 K/uL (20.0-40.0); LYMPHOCYTES % (AUTO) 11.9 % (20.5-51.5); MEAN CORPUSCULAR HEMOGLOBIN 25.3 uug (24.7-32.8); MEAN CORPUSCULAR HGB CONC 33 g/dL (32.3-35.6); MEAN CORPUSCULAR VOLUME 77.5 fL (75.5-95.3); MONOCYTES # (AUTO) 0.5 K/uL (2.0-10.0); MONOCYTES % (AUTO) 8.5 % (0.0-11.0); NEUTROPHILS # (AUTO) 4.2 K/uL (1.8-8.9); NEUTROPHILS % (AUTO) 79.3 % (38.5-71.5); PLATELET COUNT (AUTO) 168 K/uL (179-408); RED BLOOD CELL COUNT(AUTO) 3.78 MIL/uL (3.63-4.92)
[2020-04-21 06:18] LABS: BILIRUBIN,TOTAL 1.4 mg/dL (0.2-1.0); CREATININE 1.1 mg/dL (0.6-1.3); MAGNESIUM 2.5 mg/dL (1.8-2.4); POTASSIUM 3.2 mmol/L (3.5-5.1); TOTAL PROTEIN, SERUM 5.3 g/dL (6.4-8.2)
[2020-04-21] MEDS ORDERED: SWABABLE VALVE TRANSFER SET EA MC ONE (06:27)
[2020-04-21] MEDS ORDERED: IV NORMAL SALINE 250 ML IV ONE (06:27)
[2020-04-21] MEDS ORDERED: IOHEXOL 300MG/ML 100 ML INFUS..BTL ONE (06:27)
[2020-04-21 06:31] LABS: LYMPHOCYTES % (MANUAL) 17 % (20-40); MONOCYTES % (MANUAL) 10 % (2-10); NEUTROPHILS % (MANUAL) 73 % (42-75)
[2020-04-21 06:33] LABS: WHITE BLOOD COUNT (AUTO) 5.3 K/uL (3.8-11.8)
--- NOTE | 2020-04-21 06:57 | NUR ---
Patient alert but forgetful, no sob no chest pain. Patient cont on tele monitor sinus rhythm at this time. Patient has no s/s of pain at this time. Patient at Radiology dept for ct scan of the abdomen. endorse to next shift.
[2020-04-21] MEDS: PANTOPRAZOLE SODIUM 40 MG VIAL IV SCH (08:23)
[2020-04-21] MEDS ORDERED: POTASSIUM CHLORIDE 50 ML IV SCH (11:15)
[2020-04-21] MEDS ORDERED: BISACODYL 10 MG SUPP.RECT RC PRN (12:00)
[2020-04-21] MEDS: POTASSIUM PHOSPHATE MM 7.5 MMOL in IV NORMAL SALINE 97.5 ML IV SCH ×2 (12:24→14:41)
[2020-04-21] MEDS: CEFTRIAXONE 1 G in IV DEXTROSE 5% 50 ML IV SCH (12:26)
--- NOTE | 2020-04-21 17:45 | NUR ---
Received patient lying in bed to her left side. No signs or symptoms of acute distress noted at this time. Patient arousable to touch. AAOx1. Patient denies SOB and pain at this time. Bilateral heels off loaded. Iv patent and intact running ordered fluids. Márquez in place and draining. threat monitoring analyst is on. Bed locked and in low position. Safety measures in place and will continue to monitor.
[2020-04-22] MEDS: BLOOD SUGAR DIAGNOSTIC 1 EACH STRIP VI SCH ×2 (00:19→06:36)
[2020-04-22] MEDS: INSULIN REGULAR, HUMAN 300 UNIT/3 ML VIAL SQ PRN ×2 (00:23→06:38)
[2020-04-22 01:01] VITALS: BP 150/45
[2020-04-22] MEDS: IV D5W 1000ML 1,000 ML IV PRN (01:25)
[2020-04-22 05:34] VITALS: BP 101/40
[2020-04-22] MEDS ORDERED: ETOMIDATE 20 MG/10 ML VIAL IV ONE (06:00)
[2020-04-22] MEDS ORDERED: CEFAZOLIN 1 G VIAL IM ONE (06:00)
[2020-04-22] MEDS ORDERED: IV NORMAL SALINE 1000 ML BAG IV ONE ×2 (06:00)
[2020-04-22 06:46] LABS: BASOPHILS % (AUTO) 0.3 % (0.0-2.0); EOSINOPHILS % (AUTO) 0.5 % (0.0-7.0); HEMATOCRIT 30.6 % (31.2-41.9); HEMOGLOBIN 9.7 g/dL (10.9-14.3); LYMPHOCYTES # (AUTO) 0.8 K/uL (20.0-40.0); LYMPHOCYTES % (AUTO) 14.1 % (20.5-51.5); MEAN CORPUSCULAR HGB CONC 32 g/dL (32.3-35.6); MEAN CORPUSCULAR VOLUME 78.5 fL (75.5-95.3); MONOCYTES # (AUTO) 0.5 K/uL (2.0-10.0); MONOCYTES % (AUTO) 8.4 % (0.0-11.0); NEUTROPHILS # (AUTO) 4.5 K/uL (1.8-8.9); NEUTROPHILS % (AUTO) 76.7 % (38.5-71.5); PLATELET COUNT (AUTO) 140 K/uL (179-408); RED BLOOD CELL COUNT(AUTO) 3.89 MIL/uL (3.63-4.92); WHITE BLOOD COUNT (AUTO) 5.8 K/uL (3.8-11.8)
[2020-04-22 06:51] LABS: MAGNESIUM 2.1 mg/dL (1.8-2.4); PHOSPHOROUS 2.2 mg/dL (2.5-4.9); POTASSIUM 3.3 mmol/L (3.5-5.1)
[2020-04-22 08:14] VITALS: BP 102/49
[2020-04-22] MEDS: PANTOPRAZOLE SODIUM 40 MG VIAL IV SCH (08:35)
[2020-04-22] MEDS: MUPIROCIN 2% OINT 22 GM TUBE NS SCH ×2 (08:35→20:50)
[2020-04-22] MEDS: POTASSIUM CHLORIDE 20 MEQ in IV D5/ 0.9% NACL 1,000 ML IV PRN (10:15)
[2020-04-22] MEDS ORDERED: POTASSIUM CHLORIDE 20 MEQ POWDER PACKET PO ONE (11:45)
--- NOTE | 2020-04-22 11:55 | NUR ---
PT. taken down for EGD.
[2020-04-22 12:00] VITALS: BP 105/32
[2020-04-22] MEDS ORDERED: POTASSIUM PHOSPHATE MM 7.5 MMOL in IV NORMAL SALINE 97.5 ML IV ONE ×2 (12:00→16:00)
[2020-04-22] MEDS: CEFTRIAXONE 1 G in IV DEXTROSE 5% 50 ML IV SCH (12:49)
--- NOTE | 2020-04-22 14:10 | NUR ---
Patient back from EGD and PEG-placement AAOX3. vitals stable see vital signs sheet. No report received from rn progressive care unit. patient left in bed, oxygen tank not connected. Patient on RA. Upon assessment PEG noted to abdominal area insertion site c.d.i. Oxygen trial done patient saturation above 94% on RA.
[2020-04-22] MEDS: SOD FERRIC GLUC COMPLX/SUCROSE 125 MG in IV NORMAL SALINE 100 ML IV SCH (14:28)
[2020-04-22 16:00] VITALS: BP 145/65
--- NOTE | 2020-04-22 17:31 | NUR ---
PT's daughter and next on kin called x2 during shift and She was updated on care plan.
[2020-04-22 23:57] VITALS: BP 100/42
--- NOTE | 2020-04-23 02:00 | NUR ---
Patient awake x 3 s/p peg placement denies pain or discomfort at this time, no s/s of distress noted. Iv intact on rt forearm 20 g .Márquez catheter in place draining well. Patient noted with BP of 90/42 denies headache, no n/v . notified with new order given ,noted and carried out.NS 0.9 500 ml bolus given. Tolerated well.Will continue to monitor.Call light with in reach.
[2020-04-23] MEDS ORDERED: IV NORMAL SALINE 250 ML IV ONE ×2 (02:45)
[2020-04-23] MEDS: POTASSIUM CHLORIDE 20 MEQ in IV D5/ 0.9% NACL 1,000 ML IV PRN (04:26)
[2020-04-23 05:05] VITALS: BP 107/39
[2020-04-23 06:37] VITALS: BP 103/56
[2020-04-23 07:06] LABS: BASOPHILS % (AUTO) 0.1 % (0.0-2.0); HEMATOCRIT 26.2 % (31.2-41.9); HEMOGLOBIN 8.5 g/dL (10.9-14.3); LYMPHOCYTES # (AUTO) 0.4 K/uL (20.0-40.0); LYMPHOCYTES % (AUTO) 7.1 % (20.5-51.5); MEAN CORPUSCULAR HEMOGLOBIN 25.4 uug (24.7-32.8); MEAN CORPUSCULAR HGB CONC 32 g/dL (32.3-35.6); MEAN CORPUSCULAR VOLUME 78.7 fL (75.5-95.3); MONOCYTES # (AUTO) 0.4 K/uL (2.0-10.0); MONOCYTES % (AUTO) 6.8 % (0.0-11.0); NEUTROPHILS # (AUTO) 5.3 K/uL (1.8-8.9); PLATELET COUNT (AUTO) 111 K/uL (179-408); RED BLOOD CELL COUNT(AUTO) 3.33 MIL/uL (3.63-4.92); WHITE BLOOD COUNT (AUTO) 6.1 K/uL (3.8-11.8)
[2020-04-23 07:16] LABS: ALKALINE PHOSPHATASE 70 U/L (50-136); ASPARTATE AMINOTRANSFERASE 10 U/L (15-37); CARBON DIOXIDE 21 mmol/L (21-32); CHLORIDE 120 mmol/L (98-107); CREATININE 0.9 mg/dL (0.6-1.3); GLUCOSE 167 mg/dL (74-106); MAGNESIUM 1.9 mg/dL (1.8-2.4); PHOSPHOROUS 2.5 mg/dL (2.5-4.9); POTASSIUM 2.9 mmol/L (3.5-5.1); TOTAL PROTEIN, SERUM 4.6 g/dL (6.4-8.2); UREA NITROGEN, BLOOD 10 mg/dL (7-18)
[2020-04-23 07:26] LABS: ALANINE AMINOTRANSFERASE < 6 U/L (14-59)
[2020-04-23 08:00] VITALS: BP 135/48
[2020-04-23 08:10] LABS: *IMMUNOGLOBULIN G, SERUM 788 mg/dL (586-1602); IMMUNOGLOBULIN A, SERUM 249 mg/dL (64-422); IMMUNOGLOBULIN M, SERUM 42 mg/dL (26-217)
[2020-04-23] MEDS: POTASSIUM CHLORIDE 50 ML IV SCH ×4 (09:03→11:42)
[2020-04-23] MEDS: PANTOPRAZOLE SODIUM 40 MG VIAL IV SCH (09:03)
[2020-04-23] MEDS: MUPIROCIN 2% OINT 22 GM TUBE NS SCH ×2 (09:04→20:46)
[2020-04-23 11:52] VITALS: BP 128/43
[2020-04-23] MEDS: CEFTRIAXONE 1 G in IV DEXTROSE 5% 50 ML IV SCH (12:07)
[2020-04-23] MEDS: SOD FERRIC GLUC COMPLX/SUCROSE 125 MG in IV NORMAL SALINE 100 ML IV SCH (14:47)
--- NOTE | 2020-04-23 14:48 | NUR ---
Received patient awake in bed in stable condition. Patient Gtube started Jevity 1.2ml 30cc/ml for 24 hours. tolerated well. Intact and patent. Patient reinserted IV to right forearm Gauge 20. Intact and patent. no signs of infiltration. Patient potassium 2.9 replace 50 ml with 10 meq potassium x4 doses by MD Alvarez. Patient continue calvillo catheter with yellow clear color urine output. no complaint of pain/discomfort noted. Patient continue Ferritin IV for anemia and ATB ointment and IV therapy for MRSA and UTI. no adverse reaction noted. will continue monitor
[2020-04-23 16:00] VITALS: BP 109/49
--- NOTE | 2020-04-23 19:35 | NUR ---
Sleeping during initial rounds with HOB elevated. GT feeding continuously via Enteral pump at 30 cc/hour. No gastric residual obtained at this time. No s/s of aspiration. IVF infusing on LFA, no s/s of infiltration. F/C intact/patent draining dark tea colored in moderate amount. No s/s of pain/discomforts noted at this time Safety measure and fall prevention observed. Continue care as planned.
[2020-04-23 20:00] VITALS: BP 123/62
[2020-04-24] MEDS: POTASSIUM CHLORIDE 20 MEQ in IV D5/ 0.9% NACL 1,000 ML IV PRN ×2 (00:22→16:33)
[2020-04-24 04:00] VITALS: BP 140/54
--- NOTE | 2020-04-24 05:22 | NUR ---
Shift End Report: Slept well. No complaint presented all night. UA collected and sent to lab as ordered. All needs attended and met. No significant event reported all night. Continue current rehab plan of care. VS stable.
--- NOTE | 2020-04-24 06:11 | NUR ---
Stool OB specimen collected and sent to lab as ordered.
[2020-04-24 06:42] LABS: CREATININE 0.9 mg/dL (0.6-1.3); PHOSPHOROUS 1.8 mg/dL (2.5-4.9); POTASSIUM 4.3 mmol/L (3.5-5.1)
[2020-04-24 06:42] LABS: BASOPHILS % (AUTO) 0.1 % (0.0-2.0); EOSINOPHILS % (AUTO) 0.7 % (0.0-7.0); HEMATOCRIT 27.1 % (31.2-41.9); HEMOGLOBIN 8.5 g/dL (10.9-14.3); LYMPHOCYTES # (AUTO) 0.7 K/uL (20.0-40.0); LYMPHOCYTES % (AUTO) 10.9 % (20.5-51.5); MEAN CORPUSCULAR HEMOGLOBIN 25.4 uug (24.7-32.8); MEAN CORPUSCULAR HGB CONC 31 g/dL (32.3-35.6); MEAN CORPUSCULAR VOLUME 81.1 fL (75.5-95.3); MONOCYTES # (AUTO) 0.4 K/uL (2.0-10.0); NEUTROPHILS # (AUTO) 5.2 K/uL (1.8-8.9); NEUTROPHILS % (AUTO) 81.3 % (38.5-71.5); PLATELET COUNT (AUTO) 109 K/uL (179-408); RED BLOOD CELL COUNT(AUTO) 3.34 MIL/uL (3.63-4.92); WHITE BLOOD COUNT (AUTO) 6.4 K/uL (3.8-11.8)
--- NOTE | 2020-04-24 08:00 | NUR ---
Received pt in bed asleep but arousable to touch, AOx2, follows commands and stated that she's feeling a lot better today. On RA with no SOB or distress noted at this time. Denied chest pain. IV on left FA 20g running D5NS KCl 20 mE1 @ 70cc/hr. PEG tube in place running Jevity 1.2 @ 30cc/hr. Denied any abdominal pain nor nausea and vomiting. Márquez catheter in place draining clear yellow urine. DVT pumps in place. Bed locked in lowest position with siderails 2x up. Call light and phone within reach.
[2020-04-24] MEDS ORDERED: PANTOPRAZOLE ORAL SUSPENSION 40 MG SUSPDR.PKT GT SCH (09:00)
[2020-04-24] MEDS: PANTOPRAZOLE SODIUM 40 MG VIAL IV SCH (09:08)
[2020-04-24] MEDS: MUPIROCIN 2% OINT 22 GM TUBE NS SCH ×2 (09:09→21:11)
[2020-04-24 11:37] VITALS: BP 111/44
[2020-04-24] MEDS: CEFTRIAXONE 1 G in IV DEXTROSE 5% 50 ML IV SCH (12:06)
[2020-04-24 12:58] LABS: *OCCULT BLOOD STOOL POSITIVE (NEGATIVE)
--- NOTE | 2020-04-24 13:30 | NUR ---
Patient tolerating TF, residual of 10cc. Increased to 40cc/ hr at this time
[2020-04-24 14:15] LABS: A/G RATIO 1.1 (0.7-1.7); ALBUMIN 2.7 g/dL (2.9-4.4); ALPHA-1-GLOBULIN 0.3 g/dL (0.0-0.4); ALPHA-2-GLOBULIN 0.7 g/dL (0.4-1.0); BETA GLOBULIN 0.8 g/dL (0.7-1.3); GAMMA GLOBULIN 0.8 g/dL (0.4-1.8); GLOBULIN, TOTAL 2.5 g/dL (2.2-3.9); M-SPIKE Not Observed g/dL (Not Observed)
[2020-04-24] MEDS: SOD FERRIC GLUC COMPLX/SUCROSE 125 MG in IV NORMAL SALINE 100 ML IV SCH (14:50)
[2020-04-24 15:44] VITALS: BP 121/55
--- NOTE | 2020-04-24 16:46 | NUR ---
No residual, increased tube feeding to 50cc/hr, the goal rate
[2020-04-24] MEDS: JEVITY 1.2 1000 ML LIQUID GT PRN (17:36)
[2020-04-24] MEDS ORDERED: NEUTRA PHOS PACKET GT ONE (18:15)
--- NOTE | 2020-04-24 19:45 | NUR ---
Patient alert verbally responsive no sob no chest pain. Patient on GFT tolerate well no nausea no vomiting no diarrhea noted. Patient denies pain at this time. Patient was kept clean and dry, cont to monitor.
[2020-04-24 20:05] VITALS: BP 136/56
--- NOTE | 2020-04-25 04:32 | NUR ---
Patient pulled out IV lines, reinsert another one on right forearm. Patient tolerate well. cont to monitor.
[2020-04-25 04:57] VITALS: BP 137/68
[2020-04-25 06:58] LABS: BASOPHILS % (AUTO) 0.1 % (0.0-2.0); EOSINOPHILS # (AUTO) 0.1 K/uL (0.0-0.7); HEMATOCRIT 28.5 % (31.2-41.9); HEMOGLOBIN 8.9 g/dL (10.9-14.3); LYMPHOCYTES # (AUTO) 0.6 K/uL (20.0-40.0); LYMPHOCYTES % (AUTO) 11.1 % (20.5-51.5); MEAN CORPUSCULAR HEMOGLOBIN 25.6 uug (24.7-32.8); MEAN CORPUSCULAR HGB CONC 31 g/dL (32.3-35.6); MEAN CORPUSCULAR VOLUME 82.2 fL (75.5-95.3); MONOCYTES # (AUTO) 0.4 K/uL (2.0-10.0); MONOCYTES % (AUTO) 6.3 % (0.0-11.0); NEUTROPHILS # (AUTO) 4.5 K/uL (1.8-8.9); NEUTROPHILS % (AUTO) 81.5 % (38.5-71.5); PLATELET COUNT (AUTO) 115 K/uL (179-408); RED BLOOD CELL COUNT(AUTO) 3.47 MIL/uL (3.63-4.92); WHITE BLOOD COUNT (AUTO) 5.6 K/uL (3.8-11.8)
[2020-04-25 07:07] LABS: CREATININE 0.8 mg/dL (0.6-1.3); MAGNESIUM 1.9 mg/dL (1.8-2.4); POTASSIUM 4.2 mmol/L (3.5-5.1)
[2020-04-25] MEDS: MUPIROCIN 2% OINT 22 GM TUBE NS SCH ×2 (07:56→20:40)
[2020-04-25] MEDS: PANTOPRAZOLE SODIUM 40 MG VIAL IV SCH ×2 (07:56→20:23)
[2020-04-25] MEDS: CEFTRIAXONE 1 G in IV DEXTROSE 5% 50 ML IV SCH (11:08)
[2020-04-25 11:30] VITALS: BP 125/56
[2020-04-25] MEDS: SOD FERRIC GLUC COMPLX/SUCROSE 125 MG in IV NORMAL SALINE 100 ML IV SCH (14:10)
[2020-04-25] MEDS: JEVITY 1.2 1000 ML LIQUID GT PRN (14:36)
[2020-04-25 15:31] VITALS: BP 119/48
[2020-04-25] MEDS ORDERED: NEUTRA PHOS PACKET GT ONE (17:45)
--- NOTE | 2020-04-25 19:48 | NUR ---
Received patient alert but forgetful, no sob no chest pain, patient denies pain at this time. GTF site pinkish in color no drainange noted, tolerate GTF, no diarrea no nausea/vomiting. Patient calvillo cath patent draining with yellow color urine in moderate amount, with some sediment noted, cont to monitor.
[2020-04-25 20:05] VITALS: BP 132/64
[2020-04-26 04:38] VITALS: BP 119/57
--- NOTE | 2020-04-26 06:39 | NUR ---
PT SLEPT INTERMITTENTLY. PRESCRIBED MEDICATION GIVEN AND PT TOLERATED IT WELL. PT FORGETFUL NEEDS REORIENTATION. PT TURNED AND REPOSITIONED. SAFETY AND COMFORT PROVIDED.ALL NEEDS ARE MET. WILL ENDORSE TO INCOMING NURSE FOR CONTINUITY OF CARE.
[2020-04-26 07:02] LABS: ALKALINE PHOSPHATASE 105 U/L (50-136); ASPARTATE AMINOTRANSFERASE 10 U/L (15-37); BILIRUBIN,DIRECT 0.2 mg/dL (0.0-0.2); BILIRUBIN,TOTAL 0.4 mg/dL (0.2-1.0); CHLORIDE 112 mmol/L (98-107); CREATININE 0.8 mg/dL (0.6-1.3); GLUCOSE 197 mg/dL (74-106); MAGNESIUM 2.1 mg/dL (1.8-2.4); PHOSPHOROUS 2.7 mg/dL (2.5-4.9); POTASSIUM 4.5 mmol/L (3.5-5.1); TOTAL PROTEIN, SERUM 5.3 g/dL (6.4-8.2); UREA NITROGEN, BLOOD 10 mg/dL (7-18)
[2020-04-26 07:13] LABS: ALANINE AMINOTRANSFERASE < 6 U/L (14-59); CARBON DIOXIDE 22 mmol/L (21-32)
--- NOTE | 2020-04-26 07:15 | NUR ---
Received patient lying in bed . No signs or symptoms of acute distress noted at this time. Patient arousable to touch. AAOx1. Patient denies SOB and pain at this time. Iv patent and intact Márquez in place and draining. Bed locked and in low position. Safety measures in place and will continue to monitor.
[2020-04-26 07:16] LABS: BASOPHILS % (AUTO) 0.2 % (0.0-2.0); EOSINOPHILS # (AUTO) 0.1 K/uL (0.0-0.7); EOSINOPHILS % (AUTO) 0.9 % (0.0-7.0); HEMATOCRIT 30.8 % (31.2-41.9); HEMOGLOBIN 9.6 g/dL (10.9-14.3); LYMPHOCYTES # (AUTO) 0.8 K/uL (20.0-40.0); LYMPHOCYTES % (AUTO) 13.4 % (20.5-51.5); MEAN CORPUSCULAR HEMOGLOBIN 26.1 uug (24.7-32.8); MEAN CORPUSCULAR HGB CONC 31 g/dL (32.3-35.6); MEAN CORPUSCULAR VOLUME 83.6 fL (75.5-95.3); MONOCYTES # (AUTO) 0.4 K/uL (2.0-10.0); MONOCYTES % (AUTO) 7.3 % (0.0-11.0); NEUTROPHILS # (AUTO) 4.5 K/uL (1.8-8.9); NEUTROPHILS % (AUTO) 78.2 % (38.5-71.5); PLATELET COUNT (AUTO) 122 K/uL (179-408); RED BLOOD CELL COUNT(AUTO) 3.68 MIL/uL (3.63-4.92); WHITE BLOOD COUNT (AUTO) 5.8 K/uL (3.8-11.8)
[2020-04-26] MEDS: MUPIROCIN 2% OINT 22 GM TUBE NS SCH ×2 (07:45→20:07)
[2020-04-26] MEDS: PANTOPRAZOLE SODIUM 40 MG VIAL IV SCH ×2 (08:00→20:06)
[2020-04-26] MEDS: JEVITY 1.2 1000 ML LIQUID GT PRN (10:44)
[2020-04-26 11:21] VITALS: BP 125/56
[2020-04-26] MEDS: SOD FERRIC GLUC COMPLX/SUCROSE 125 MG in IV NORMAL SALINE 100 ML IV SCH (13:40)
[2020-04-26 15:26] VITALS: BP 105/50
[2020-04-26] MEDS ORDERED: MICAFUNGIN SODIUM 100 MG in IV NORMAL SALINE 100 ML IV SCH (20:00)
[2020-04-26 20:31] VITALS: BP 112/49
[2020-04-27 04:40] VITALS: BP 108/41
[2020-04-27] MEDS: JEVITY 1.2 1000 ML LIQUID GT PRN (04:54)
--- NOTE | 2020-04-27 05:00 | NUR ---
patient slept comfortably throughout the night. aaox2. able to verbalize needs. no s/s of acute distress noted. v/s stable. gtube feeding running at 50cc/hr running continuously, flushed, and no residual at this time. PIV intact and patent. on RA. Márquez intact and patent flowing via gravity tea color urine. all medications administered and needs met. will continue to monitor and assess patient. fall precautions in place and call light within reach. will continue to monitor and assess until morning endorsement.
[2020-04-27 07:31] LABS: CREATININE 0.8 mg/dL (0.6-1.3); MAGNESIUM 2.1 mg/dL (1.8-2.4); PHOSPHOROUS 2.9 mg/dL (2.5-4.9); POTASSIUM 4.6 mmol/L (3.5-5.1)
[2020-04-27 07:51] LABS: BASOPHILS % (AUTO) 0.2 % (0.0-2.0); EOSINOPHILS # (AUTO) 0.1 K/uL (0.0-0.7); EOSINOPHILS % (AUTO) 1.2 % (0.0-7.0); HEMATOCRIT 29.8 % (31.2-41.9); HEMOGLOBIN 9.3 g/dL (10.9-14.3); LYMPHOCYTES # (AUTO) 0.9 K/uL (20.0-40.0); LYMPHOCYTES % (AUTO) 18.6 % (20.5-51.5); MEAN CORPUSCULAR HEMOGLOBIN 26.4 uug (24.7-32.8); MEAN CORPUSCULAR HGB CONC 31 g/dL (32.3-35.6); MEAN CORPUSCULAR VOLUME 84.3 fL (75.5-95.3); MONOCYTES # (AUTO) 0.3 K/uL (2.0-10.0); MONOCYTES % (AUTO) 5.6 % (0.0-11.0); NEUTROPHILS # (AUTO) 3.6 K/uL (1.8-8.9); NEUTROPHILS % (AUTO) 74.4 % (38.5-71.5); PLATELET COUNT (AUTO) 127 K/uL (179-408); RED BLOOD CELL COUNT(AUTO) 3.53 MIL/uL (3.63-4.92); WHITE BLOOD COUNT (AUTO) 4.8 K/uL (3.8-11.8)
[2020-04-27] MEDS: PANTOPRAZOLE SODIUM 40 MG VIAL IV SCH (10:03)
[2020-04-27] MEDS: MUPIROCIN 2% OINT 22 GM TUBE NS SCH (10:04)
[2020-04-27 10:19] LABS: NEUTROPHILS % (MANUAL) 72 % (42-75)
[2020-04-27 10:20] LABS: EOSINOPHILS % (MANUAL) 1 % (0-8); LYMPHOCYTES % (MANUAL) 24 % (20-40); MONOCYTES % (MANUAL) 6 % (2-10)
[2020-04-27 11:19] VITALS: BP 117/55
[2020-04-27] MEDS ORDERED: MUPI22OI2 NS (12:36)
[2020-04-27] MEDS ORDERED: LACT-209 GT (12:36)
[2020-04-27] MEDS ORDERED: VORI200T GT (12:36)
[2020-04-27 16:25] VITALS: BP 116/55
== END 2020-04-27 16:55 | DRG 377 ==
LOC: ER 08:14 → TELE3 14:17 → MEDSURG3 04-22 11:05
PROVIDERS: ADMIT Internal Medicine; ATTEND Registered Nurse
PROC: 30233N1 Transfusion of Nonautologous Red Blood Cells into Peripheral Vein, Percutaneous Approach (ICD-10-PCS; principal; 2020-04-20)
PROC: 0DH63UZ Insertion of Feeding Device into Stomach, Percutaneous Approach (ICD-10-PCS; 2020-04-22)
DX: K92.2 Gastrointestinal hemorrhage, unspecified (principal); E43 Unspecified severe protein-calorie malnutrition; D61.818 Other pancytopenia; E87.0 Hyperosmolality and hypernatremia; D68.69 Other thrombophilia; N17.9 Acute kidney failure, unspecified; G93.40 Encephalopathy, unspecified; J90 Pleural effusion, not elsewhere classified; N13.6 Pyonephrosis; D50.9 Iron deficiency anemia, unspecified; R62.7 Adult failure to thrive; D46.9 Myelodysplastic syndrome, unspecified; G30.9 Alzheimer's disease, unspecified; F02.80 Dementia in other diseases classified elsewhere, unspecified severity, without behavioral disturbance, psychotic disturbance, mood disturbance, and anxiety; E86.0 Dehydration; E03.9 Hypothyroidism, unspecified; E11.9 Type 2 diabetes mellitus without complications; R13.10 Dysphagia, unspecified; M19.90 Unspecified osteoarthritis, unspecified site; Z87.891 Personal history of nicotine dependence; Z87.11 Personal history of peptic ulcer disease; Z79.84 Long term (current) use of oral hypoglycemic drugs; E78.5 Hyperlipidemia, unspecified; I11.9 Hypertensive heart disease without heart failure; I48.0 Paroxysmal atrial fibrillation; Z79.01 Long term (current) use of anticoagulants; M81.0 Age-related osteoporosis without current pathological fracture; K56.41 Fecal impaction; Z68.24 Body mass index [BMI] 24.0-24.9, adult; N94.89 Other specified conditions associated with female genital organs and menstrual cycle; Z22.322 Carrier or suspected carrier of Methicillin resistant Staphylococcus aureus; G25.0 Essential tremor; Z74.01 Bed confinement status
CPT/HCPCS: 36415; 70030-TC; 71045; 76770; 82378; 82784; 83550; 83690; 83735; 84100; 84155; 84165; 84300; 84443; 85025; 85730; 86334; 86850; 86900; 86901; 86920; 87086; 93005; 93307; A4217; A4663; C1758; C9113; G0378; J0690; J0696; J1815; J2248; J2916; J3480; J3490; J7030; J7040; J7042; J7050; J7060; J7070; P9016-BL; P9021; Q9967